=== PATIENT | male | born 1955 | race African-American/Black ===

== ENCOUNTER 2016-11-15 18:34 | Emergency (ER) | payer MEDICAID ==
[~2016-11-15] VITALS: Ht 182.9 cm; Wt 81.8 kg
[~2016-11-15 18:34] MED LIST: AMLO-511 PO; LISI10TA7 PO; METO50 PO; [UNRECOGNIZED DRUG - REMARK] PO
[2016-11-15] MEDS ORDERED: METF500T4 PO (18:55)
[2016-11-15] MEDS ORDERED: LISI1TAB9 PO (18:55)
[2016-11-15] MEDS: ACETAMINOPHEN 325 MG TABLET PO ONE (19:18)
[2016-11-15] MEDS: CloNIDine HCL 0.2 MG TABLET PO ONE (19:18)
[2016-11-15 22:16] LABS: BASOPHILS # (AUTO) 0.04 K/uL (0.00-0.20); BASOPHILS % (AUTO) 0.6 % (0.0-2.0); EOSINOPHILS # (AUTO) 0.46 K/uL (0.00-0.70); EOSINOPHILS % (AUTO) 6.96 % (1.0-6.0); HEMATOCRIT 42.2 % (41-53); HEMOGLOBIN 13.3 g/dL (13.5-17.5); LYMPHOCYTES # (AUTO) 3.1 K/uL (1.0-4.8); LYMPHOCYTES % (AUTO) 46.3 % (22.0-44.0); MEAN CORPUSCULAR HEMOGLOBIN 23.3 pg (26.0-34.0); MEAN CORPUSCULAR HGB CONC 31.6 G/dL (31.0-37.0); MEAN CORPUSCULAR VOLUME 74 fL (80-100); MONOCYTES # (AUTO) 0.3 K/uL (0.1-1.0); MONOCYTES % (AUTO) 5.2 % (2.0-9.0); NEUTROPHILS # (AUTO) 2.7 K/uL (1.8-7.7); RED BLOOD CELL COUNT(AUTO) 5.72 MIL/uL (4.50-5.90); RED CELL DISTRIBUTION WIDTH 16.2 % (11.5-14.5); WHITE BLOOD COUNT (AUTO) 6.7 K/uL (4.5-11.0)
[2016-11-15] MEDS: NITROGLYCERIN 2% (1 GM=INCH) PACKET TP ONE (22:20)
[2016-11-15 22:22] LABS: ANION GAP 8 mmol/L (8-16); CALCIUM, TOTAL 9.1 mg/dL (8.8-10.5); CARBON DIOXIDE 34 mmol/L (22-29); CHLORIDE 99 mmol/L (98-107); CREATININE 1.31 mg/dL (0.60-1.30); GLOMERULAR FILTR. RATE CALC > 60 mL/min (>60); POTASSIUM 3.5 mmol/L (3.5-5.1); SODIUM SERUM 141 mmol/L (136-145); UREA NITROGEN, BLOOD 14 mg/dL (7-18)
[2016-11-15 22:23] LABS: APPEARANCE,URINE CLEAR (CLEAR); GLUCOSE, URINE (UA) 100 mg/dL (NEGATIVE); KETONES,URINE NEGATIVE (NEGATIVE); LEUKOCYTE ESTERASE ,URINE NEGATIVE (NEGATIVE); OCCULT BLOOD,URINE NEGATIVE (NEGATIVE); PH,URINE 7.5 (5.0-8.0); PROTEIN,URINE NEGATIVE (NEGATIVE)
[2016-11-15 22:25] LABS: ADD UA MICROSCOPIC YES
[2016-11-15 22:33] LABS: RBC,URINE 0-2 /HPF (0-2); WBC,URINE 0-2 /HPF (0-5)
[2016-11-15 22:34] LABS: SQUAMOUS EPITHELIAL CELL,UR Rare /LPF (None Seen)
[2016-11-15 22:36] LABS: PLATELET COUNT (AUTO) 126 K/uL (150-450); RBC MORPHOLOGY COMMENT ABNORMAL RBC MORPH
[2016-11-15] MEDS: LABETALOL HCL 5 MG/ML 20 ML VIAL IVP ONE (23:41)
[2016-11-16 00:26] VITALS: BP 158/89
== END 2016-11-16 00:43 | disposition home or self-care (01) ==
LOC: EMS 18:37
DX: I10 Essential (primary) hypertension (principal)
CPT/HCPCS: 36415; 80048; 81001; 84484; 85025; 93005; 96374; 99285; J3490

== ENCOUNTER 2017-05-11 20:49 | Emergency (ER) | payer MEDICAID ==
[~2017-05-11] VITALS: Ht 182.9 cm; Wt 86.4 kg
[~2017-05-11 20:49] MED LIST changes: -AMLO-511 PO; -LISI10TA7 PO; +LISI1TAB9 PO; +METF500T4 PO
[2017-05-11] MEDS ORDERED: AMLO-512 PO (20:58)
[2017-05-12 01:48] VITALS: BP 156/91
== END 2017-05-12 02:14 | disposition home or self-care (01) ==
LOC: EMS 20:54
DX: R05 Cough (principal); R09.81 Nasal congestion; I10 Essential (primary) hypertension
CPT/HCPCS: 99283

== ENCOUNTER 2017-08-18 17:29 | Emergency (ER) | payer MEDICAID ==
[~2017-08-18] VITALS: Ht 182.9 cm; Wt 81.8 kg
[~2017-08-18 17:29] MED LIST changes: +AMLO-512 PO
[2017-08-18] MEDS ORDERED: AMOX1TAB16 PO (17:40)
[2017-08-18 17:48] LABS: GLUCOSE,POINT OF CARE 156 MG/DL (70-110)
[2017-08-18 20:02] LABS: BASOPHILS % (AUTO) 0.8 % (0.0-2.0); EOSINOPHILS % (AUTO) 8.1 % (1.0-6.0); HEMOGLOBIN 12.8 g/dL (13.5-17.5); LYMPHOCYTES % (AUTO) 37.6 % (22.0-44.0); MEAN CORPUSCULAR HEMOGLOBIN 22.7 pg (26.0-34.0); MEAN CORPUSCULAR VOLUME 71 fL (80-100); MONOCYTES # (AUTO) 0.4 K/uL (0.1-1.0); NEUTROPHILS # (AUTO) 2.4 K/uL (1.8-7.7); NEUTROPHILS % (AUTO) 46.5 % (40.0-70.0); PLATELET COUNT (AUTO) 107 K/uL (150-450); RED BLOOD CELL COUNT(AUTO) 5.64 MIL/uL (4.50-5.90); RED CELL DISTRIBUTION WIDTH 14.8 % (11.5-14.5)
[2017-08-18 20:09] LABS: ANION GAP 7 mmol/L (8-16); CALCIUM, TOTAL 9.4 mg/dL (8.8-10.5); CARBON DIOXIDE 33 mmol/L (22-29); CHLORIDE 105 mmol/L (98-107); GLOMERULAR FILTR. RATE CALC 58 mL/min (>60); GLUCOSE,RANDOM 103 mg/dL (70-110); POTASSIUM 3.6 mmol/L (3.5-5.1); SODIUM SERUM 145 mmol/L (136-145); UREA NITROGEN, BLOOD 17 mg/dL (7-18)
[2017-08-18 20:14] LABS: ALANINE AMINOTRANSFERASE 21 U/L (12-78); ALBUMIN 3.6 g/dL (3.4-5.0); ALKALINE PHOSPHATASE 62 U/L (46-116); ASPARTATE AMINOTRANSFERASE 27 U/L (15-37); BILIRUBIN,TOTAL 0.4 mg/dL (0.1-1.0); TOTAL PROTEIN, SERUM 8.4 g/dL (6.4-8.2)
[2017-08-18 20:16] LABS: ACETAMINOPHEN < 2 mcg/mL (10-30); AMMONIA 17 umol/L (11-32)
[2017-08-18 20:18] LABS: TROPONIN I < 0.02 ng/mL (0.00-0.05)
[2017-08-18 20:24] LABS: B-TYPE NATRIURETIC PEPTIDE 17 pg/mL (0-100)
[2017-08-18 20:30] LABS: SALICYLATE 1.5 mg/dL (2.8-20.0)
[2017-08-18 22:00] VITALS: BP 129/71
[2017-08-18 22:55] LABS: APPEARANCE,URINE CLEAR (CLEAR); BILIRUBIN,URINE NEGATIVE (NEGATIVE); GLUCOSE, URINE (UA) NEGATIVE (NEGATIVE); KETONES,URINE NEGATIVE (NEGATIVE); LEUKOCYTE ESTERASE ,URINE NEGATIVE (NEGATIVE); NITRATE,URINE NEGATIVE (NEGATIVE); OCCULT BLOOD,URINE NEGATIVE (NEGATIVE); PH,URINE 6.5 (5.0-8.0); PROTEIN,URINE POS 1+ (NEGATIVE)
[2017-08-18 22:58] LABS: AMPHET/METH SCREEN,URINE NEGATIVE (NEGATIVE); CANNABINOID SCREEN,URINE NEGATIVE (NEGATIVE); COCAINE SCREEN,URINE NEGATIVE (NEGATIVE); METHADONE SCREEN, URINE POSITIVE (NEGATIVE)
[2017-08-18 23:07] LABS: BARBITURATE SCREEN, URINE NEGATIVE (NEGATIVE); BENZODIAZEPINES SCREEN,URINE POSITIVE (NEGATIVE); OPIATE SCREEN,URINE POSITIVE (NEGATIVE); PHENCYCLIDINE SCREEN,URINE NEGATIVE (NEGATIVE)
== END 2017-08-18 22:08 | disposition home or self-care (01) ==
LOC: EMS 17:32
DX: I12.9 Hypertensive chronic kidney disease with stage 1 through stage 4 chronic kidney disease, or unspecified chronic kidney disease (principal); N18.9 Chronic kidney disease, unspecified; R26.89 Other abnormalities of gait and mobility; F11.90 Opioid use, unspecified, uncomplicated
CPT/HCPCS: 36415; 70450; 80053; 80307; 81003; 82140; 82962; 83880; 84484; 85025; 93005; 99285; G0480 ×2; G0481

== ENCOUNTER 2018-01-28 16:48 | Emergency (ER) | payer MEDICAID ==
[~2018-01-28] VITALS: Ht 182.9 cm; Wt 81.8 kg
[~2018-01-28 16:48] MED LIST changes: +AMOX1TAB16 PO; +METF-960 PO; -METF500T4 PO; -METO50 PO
[2018-01-28] MEDS ORDERED: KETOROLAC TROMETHAMINE 60 MG/2 ML VIAL IM ONE (18:00)
[2018-01-28] MEDS ORDERED: METHOCARBAMOL 500 MG TABLET PO ONE (18:00)
[2018-01-28 18:47] VITALS: BP 128/77
== END 2018-01-28 18:50 | disposition home or self-care (01) ==
LOC: EMS 16:50
DX: S16.1XXA Strain of muscle, fascia and tendon at neck level, initial encounter (principal); I10 Essential (primary) hypertension; Z79.899 Other long term (current) drug therapy; V43.52XA Car driver injured in collision with other type car in traffic accident, initial encounter; Y93.89 Activity, other specified; Y92.488 Other paved roadways as the place of occurrence of the external cause; Y99.8 Other external cause status
CPT/HCPCS: 96372; 99283; J1885

== ENCOUNTER 2018-03-02 14:45 | Emergency (ER) | payer MEDICAID ==
[~2018-03-02] VITALS: Ht 182.9 cm; Wt 81.8 kg
[2018-03-02 14:59] LABS: GLUCOSE,POINT OF CARE 114 MG/DL (70-110)
[2018-03-02] MEDS ORDERED: ACETAMINOPHEN 500 MG TABLET PO ONE (16:45)
[2018-03-02 17:19] VITALS: BP 128/79
== END 2018-03-02 17:23 | disposition home or self-care (01) ==
LOC: EMS 14:46
DX: J44.9 Chronic obstructive pulmonary disease, unspecified (principal); J40 Bronchitis, not specified as acute or chronic; M79.10 Myalgia, unspecified site; E11.9 Type 2 diabetes mellitus without complications; I10 Essential (primary) hypertension; F11.90 Opioid use, unspecified, uncomplicated; Z88.6 Allergy status to analgesic agent; Z79.84 Long term (current) use of oral hypoglycemic drugs; Z79.899 Other long term (current) drug therapy

== ENCOUNTER 2018-12-13 19:00 | Emergency (ER) | payer MEDICAID ==
[~2018-12-13] VITALS: Ht 188 cm; Wt 77.3 kg
[~2018-12-13 19:00] MED LIST changes: -AMLO-512 PO; +AMLO10TA7 PO; -AMOX1TAB16 PO
[2018-12-13] MEDS ORDERED: DEXAMETHASONE SOD PHOS 4 MG/ML VIAL IM ONE (20:45)
[2018-12-13] MEDS ORDERED: DiphenhydrAMINE HCL 25 MG CAPSULE PO ONE (20:45)
[2018-12-13] MEDS ORDERED: PRAMOXINE HCL/BENZYL ALCOHOL 1% 35 GM GEL TP ONE (20:45)
[2018-12-13 21:05] VITALS: BP 148/80
== END 2018-12-13 22:02 | disposition home or self-care (01) ==
LOC: EMS 19:02
DX: R21 Rash and other nonspecific skin eruption (principal); I10 Essential (primary) hypertension; H54.40 Blindness, one eye, unspecified eye; F11.90 Opioid use, unspecified, uncomplicated; Z79.899 Other long term (current) drug therapy
CPT/HCPCS: 96372; 99283; J1100

== ENCOUNTER 2019-06-15 19:18 | Emergency (ER) | payer MEDICAID ==
[~2019-06-15] VITALS: Ht 182.9 cm; Wt 81.8 kg
[~2019-06-15 19:18] MED LIST changes: -METF-960 PO
[2019-06-15 20:45] LABS: BASOPHILS % (AUTO) 0.5 % (0.0-2.0); EOSINOPHILS % (AUTO) 1.5 % (1.0-6.0); HEMATOCRIT 39.3 % (41-53); HEMOGLOBIN 12.6 g/dL (13.5-17.5); LYMPHOCYTES # (AUTO) 1.1 K/uL (1.0-4.8); LYMPHOCYTES % (AUTO) 13.1 % (22.0-44.0); MEAN CORPUSCULAR HGB CONC 32.1 G/dL (31.0-37.0); MEAN CORPUSCULAR VOLUME 72 fL (80-100); MONOCYTES # (AUTO) 0.6 K/uL (0.1-1.0); MONOCYTES % (AUTO) 7.3 % (2.0-9.0); NEUTROPHILS # (AUTO) 6.3 K/uL (1.8-7.7); NEUTROPHILS % (AUTO) 77.6 % (40.0-70.0); PLATELET COUNT (AUTO) 152 K/uL (150-450); RED BLOOD CELL COUNT(AUTO) 5.49 MIL/uL (4.50-5.90); RED CELL DISTRIBUTION WIDTH 16.3 % (11.5-14.5)
[2019-06-15] MEDS ORDERED: HYDR-4031 PO (20:54)
[2019-06-15] MEDS ORDERED: ABAC1TAB15 PO (20:54)
[2019-06-15] MEDS ORDERED: METO100T14 PO (20:54)
[2019-06-15] MEDS ORDERED: BUSP10TA23 PO (20:54)
[2019-06-15] MEDS ORDERED: VENL-67 PO (20:54)
[2019-06-15] MEDS ORDERED: GABA-531 PO (20:54)
[2019-06-15] MEDS ORDERED: METF-960 PO (20:54)
[2019-06-15 21:05] LABS: ALANINE AMINOTRANSFERASE 33 U/L (12-78); ALBUMIN 3.7 g/dL (3.4-5.0); ALKALINE PHOSPHATASE 81 U/L (46-116); ANION GAP 11 mmol/L (8-16); ASPARTATE AMINOTRANSFERASE 29 U/L (15-37); BILIRUBIN,TOTAL 0.3 mg/dL (0.1-1.0); CARBON DIOXIDE 28 mmol/L (22-29); CHLORIDE 103 mmol/L (98-107); CREATININE 1.25 mg/dL (0.60-1.30); GLOMERULAR FILTR. RATE CALC > 60 mL/min (>60); GLUCOSE,RANDOM 141 mg/dL (70-110); SODIUM SERUM 142 mmol/L (136-145); TOTAL PROTEIN, SERUM 8.1 g/dL (6.4-8.2); UREA NITROGEN, BLOOD 12 mg/dL (7-18)
[2019-06-15 21:06] LABS: ACETAMINOPHEN < 2 mcg/mL (10-30); POTASSIUM 2.6 mmol/L (3.5-5.1)
[2019-06-15 21:07] LABS: PLATELET MORPHOLOGY COMMENT LARGE PLTS PRESENT
[2019-06-15 21:29] LABS: SALICYLATE 1.6 mg/dL (2.8-20.0)
[2019-06-15] MEDS ORDERED: POTASSIUM CHLORIDE 20 MEQ ER TABLET PO ONE (21:30)
[2019-06-15] MEDS: POTASSIUM CHL 10 MEQ/WATER 50 ML IV SCH ×2 (22:06→23:25)
[2019-06-15 23:25] VITALS: BP 164/98
== END 2019-06-16 00:50 | disposition home or self-care (01) ==
LOC: EMS 19:21
DX: T40.3X1A Poisoning by methadone, accidental (unintentional), initial encounter (principal); T39.1X1A Poisoning by 4-Aminophenol derivatives, accidental (unintentional), initial encounter; E87.6 Hypokalemia; I10 Essential (primary) hypertension; Z79.899 Other long term (current) drug therapy; Z79.84 Long term (current) use of oral hypoglycemic drugs; Z98.890 Other specified postprocedural states; Y92.89 Other specified places as the place of occurrence of the external cause
CPT/HCPCS: 36415; 80053; 85025; 93005; 96365; 96366; 99284; G0480; J3480; G0481

== ENCOUNTER 2019-06-27 12:39 | Emergency (ER) | payer MEDICAID ==
[~2019-06-27] VITALS: Ht 188 cm; Wt 81.0 kg
[~2019-06-27 12:39] MED LIST changes: +ABAC1TAB15 PO; +BUSP10TA23 PO; +GABA-531 PO; +HYDR-4031 PO; +METF-960 PO; +METO100T14 PO; +VENL-67 PO; -[UNRECOGNIZED DRUG - REMARK] PO
[2019-06-27 13:14] LABS: GLUCOSE,POINT OF CARE 134 MG/DL (70-110)
[2019-06-27] MEDS ORDERED: IBUPROFEN 600 MG TABLET PO ONE (14:30)
[2019-06-27] MEDS ORDERED: LIDOCAINE 5% TRANSDERMAL PATCH TD ONE (14:30)
[2019-06-27 16:25] VITALS: BP 147/77
== END 2019-06-27 16:26 | disposition home or self-care (01) ==
LOC: EMS 12:40
DX: M94.0 Chondrocostal junction syndrome [Tietze] (principal); I10 Essential (primary) hypertension; F11.90 Opioid use, unspecified, uncomplicated; Z79.84 Long term (current) use of oral hypoglycemic drugs; Z79.899 Other long term (current) drug therapy
CPT/HCPCS: 93005

== ENCOUNTER 2019-12-14 19:59 | Emergency (ER) | payer MEDICAID ==
[~2019-12-14] VITALS: Ht 185.4 cm; Wt 79.5 kg
[~2019-12-14 19:59] MED LIST changes: +AMLO-258 PO; -AMLO10TA7 PO
[2019-12-14] MEDS ORDERED: HYDR-4455 PO (20:10)
[2019-12-14] MEDS ORDERED: METF-960 PO (20:10)
[2019-12-14 21:30] LABS: BASOPHILS % (AUTO) 0.5 % (0.0-2.0); EOSINOPHILS % (AUTO) 2.3 % (1.0-6.0); HEMATOCRIT 27.4 % (41-53); HEMOGLOBIN 8.8 g/dL (13.5-17.5); LYMPHOCYTES # (AUTO) 1.9 K/uL (1.0-4.8); LYMPHOCYTES % (AUTO) 30.7 % (22.0-44.0); MEAN CORPUSCULAR HEMOGLOBIN 23.1 pg (26.0-34.0); MEAN CORPUSCULAR HGB CONC 32.3 G/dL (31.0-37.0); MEAN CORPUSCULAR VOLUME 72 fL (80-100); MONOCYTES # (AUTO) 0.4 K/uL (0.1-1.0); NEUTROPHILS # (AUTO) 3.7 K/uL (1.8-7.7); NEUTROPHILS % (AUTO) 60.5 % (40.0-70.0); PLATELET COUNT (AUTO) 140 K/uL (150-450); RED BLOOD CELL COUNT(AUTO) 3.82 MIL/uL (4.50-5.90); RED CELL DISTRIBUTION WIDTH 16.2 % (11.5-14.5)
[2019-12-14 21:38] LABS: ANION GAP 5 mmol/L (8-16); CALCIUM, TOTAL 8.5 mg/dL (8.8-10.5); CARBON DIOXIDE 34 mmol/L (22-29); CHLORIDE 103 mmol/L (98-107); CREATININE 1.48 mg/dL (0.60-1.30); GLOMERULAR FILTR. RATE CALC 58 mL/min (>60); GLUCOSE,RANDOM 133 mg/dL (70-110); POTASSIUM 3.5 mmol/L (3.5-5.1); SODIUM SERUM 142 mmol/L (136-145); UREA NITROGEN, BLOOD 13 mg/dL (7-18)
[2019-12-14 21:44] LABS: ALANINE AMINOTRANSFERASE 28 U/L (12-78); ALBUMIN 3.3 g/dL (3.4-5.0); ALKALINE PHOSPHATASE 46 U/L (46-116); ASPARTATE AMINOTRANSFERASE 27 U/L (15-37); BILIRUBIN,TOTAL 0.2 mg/dL (0.1-1.0); LIPASE 48 U/L (73-393); TOTAL PROTEIN, SERUM 7.2 g/dL (6.4-8.2)
[2019-12-14 21:49] LABS: LACTIC ACID 2.8 mmol/L (0.4-2.0)
[2019-12-14 22:15] LABS: PLATELET MORPHOLOGY COMMENT LARGE PLTS PRESENT
[2019-12-14] MEDS ORDERED: SODIUM CHLORIDE 0.9% 1,000 ML IV ONE (22:15)
[2019-12-15 00:03] LABS: GLUCOSE,POINT OF CARE 125 MG/DL (70-110)
[2019-12-15 02:20] VITALS: BP 124/75
[2019-12-15] MEDS ORDERED: ASPI-1198 PO (13:59)
[2019-12-15] MEDS ORDERED: ATOR10TA69 PO (13:59)
[2019-12-15] MEDS ORDERED: GABA-1181 PO (13:59)
[2019-12-15] MEDS ORDERED: LISI-658 PO (13:59)
== END 2019-12-15 02:43 | disposition home or self-care (01) ==
LOC: EMS 19:59
DX: K62.5 Hemorrhage of anus and rectum (principal); K59.00 Constipation, unspecified; E11.9 Type 2 diabetes mellitus without complications; I10 Essential (primary) hypertension; F11.90 Opioid use, unspecified, uncomplicated; Z79.84 Long term (current) use of oral hypoglycemic drugs; Z79.899 Other long term (current) drug therapy
CPT/HCPCS: 83605

== ENCOUNTER 2022-03-06 19:21 | Emergency (ER) | payer MEDICARE, MEDICAID ==
[~2022-03-06] VITALS: Ht 185.4 cm; Wt 79.5 kg
[~2022-03-06 19:21] MED LIST changes: +ASPI-1198 PO; +ATOR10TA69 PO; +GABA-1181 PO; -GABA-531 PO; -HYDR-4031 PO; -LISI1TAB9 PO; +METF-1211 PO; -METF-960 PO; -METO100T14 PO
[2022-03-06] MEDS ORDERED: METO100T14 PO (19:42)
[2022-03-06] MEDS ORDERED: LISI-658 PO (19:42)
[2022-03-06] MEDS ORDERED: HYDR-4069 PO (19:42)
[2022-03-06] MEDS ORDERED: HYDR-4808 PO (19:42)
[2022-03-06 20:25] LABS: BASOPHILS % (AUTO) 0.4 % (0.0-2.0); EOSINOPHILS % (AUTO) 6.1 % (1.0-6.0); HEMATOCRIT 35.3 % (41-53); HEMOGLOBIN 10.8 g/dL (13.5-17.5); LYMPHOCYTES % (AUTO) 29.1 % (22.0-44.0); MEAN CORPUSCULAR HEMOGLOBIN 20.1 pg (26.0-34.0); MEAN CORPUSCULAR HGB CONC 30.4 G/dL (31.0-37.0); MEAN CORPUSCULAR VOLUME 66 fL (80-100); MONOCYTES # (AUTO) 0.9 K/uL (0.1-1.0); MONOCYTES % (AUTO) 12.9 % (2.0-9.0); NEUTROPHILS # (AUTO) 3.5 K/uL (1.8-7.7); NEUTROPHILS % (AUTO) 51.5 % (40.0-70.0); PLATELET COUNT (AUTO) 189 K/uL (150-450); RED BLOOD CELL COUNT(AUTO) 5.35 MIL/uL (4.50-5.90)
[2022-03-06 20:37] LABS: CALCIUM, TOTAL 9.4 mg/dL (8.8-10.5); CREATININE 2.13 mg/dL (0.60-1.30); POTASSIUM 4.1 mmol/L (3.5-5.1)
[2022-03-06 20:42] LABS: ALBUMIN 3.6 g/dL (3.4-5.0); BILIRUBIN,TOTAL 0.5 mg/dL (0.1-1.0); PLATELET MORPHOLOGY COMMENT LARGE PLTS PRESENT; TOTAL PROTEIN, SERUM 7.9 g/dL (6.4-8.2)
[2022-03-06] MEDS ORDERED: ACETAMINOPHEN 500 MG TABLET PO ONE (20:45)
[2022-03-06] MEDS ORDERED: MAG HYDROX/AL HYDROX/SIMETH ES 30 ML SUSPENSION UDCUP PO ONE (20:45)
[2022-03-06] MEDS ORDERED: ONDANSETRON HCL 4 MG TABLET PO ONE (20:45)
[2022-03-06] MEDS ORDERED: ONDA-104 PO (22:11)
[2022-03-06] MEDS ORDERED: MAG30ORA11 PO (22:11)
[2022-03-06] MEDS ORDERED: ACET-66 PO (22:11)
[2022-03-06 22:19] VITALS: BP 132/70
== END 2022-03-06 22:22 | disposition home or self-care (01) ==
LOC: EMS 19:22
DX: R10.10 Upper abdominal pain, unspecified (principal); F11.10 Opioid abuse, uncomplicated; I12.9 Hypertensive chronic kidney disease with stage 1 through stage 4 chronic kidney disease, or unspecified chronic kidney disease; E11.22 Type 2 diabetes mellitus with diabetic chronic kidney disease; N18.9 Chronic kidney disease, unspecified; R91.8 Other nonspecific abnormal finding of lung field; Z98.890 Other specified postprocedural states; Z93.3 Colostomy status
CPT/HCPCS: 99285; 74176; 80053; 83605; 83690; 84484; 85025; 36415; 93005; Q0162

== ENCOUNTER 2022-12-26 18:32 | Emergency (ER) | payer MEDICARE, MEDICAID ==
[~2022-12-26] VITALS: Ht 185.4 cm; Wt 72.7 kg
[~2022-12-26 18:32] MED LIST changes: +ABAC300T2 PO; +ACET-784 PO; -ASPI-1198 PO; +DOCU-119 PO; +DOLU50TA PO; +HYDR-4069 PO; +HYDR-4808 PO; +LAMI300T PO; +LISI-661 PO; +METH10 PO
[2022-12-26 21:06] VITALS: TEMP 98.8
[2022-12-26 23:10] VITALS: BP 156/82; PULSE 82; RESP 16
== END 2022-12-26 23:10 | disposition home or self-care (01) ==
LOC: EMS 18:33
DX: F41.0 Panic disorder [episodic paroxysmal anxiety] (principal); I10 Essential (primary) hypertension; E78.00 Pure hypercholesterolemia, unspecified; E11.9 Type 2 diabetes mellitus without complications; Z79.84 Long term (current) use of oral hypoglycemic drugs; Z79.899 Other long term (current) drug therapy; F11.90 Opioid use, unspecified, uncomplicated
CPT/HCPCS: 82962; 99283

== ENCOUNTER 2024-11-01 22:26 | Inpatient (IN) | payer MEDICARE, MEDICAID ==
[~2024-11-01] VITALS: Ht 177.8 cm; Wt 79.9 kg
[2024-11-01] MEDS: haloperidoL LACTATE 5 MG/ML VIAL IM ONE (22:56)
[2024-11-01] MEDS: LORazepam 2 MG/ML VIAL IM ONE (22:56)
[2024-11-01] MEDS: SODIUM CHLORIDE 0.9% 1,000 ML IV ONE (22:56)
[2024-11-01] MEDS: DiphenhydrAMINE HCL 50 MG/ML VIAL IM ONE (22:56)
[2024-11-01 22:57] LABS: EOSINOPHILS % (AUTO) 4.5 % (1.0-6.0); HEMATOCRIT 44.1 % (41-53); HEMOGLOBIN 14.1 g/dL (13.5-17.5); LYMPHOCYTES # (AUTO) 4.9 K/uL (1.0-4.8); LYMPHOCYTES % (AUTO) 52.9 % (22.0-44.0); MEAN CORPUSCULAR HEMOGLOBIN 25.7 pg (26.0-34.0); MEAN CORPUSCULAR HGB CONC 31.9 G/dL (31.0-37.0); MEAN CORPUSCULAR VOLUME 80 fL (80-100); MONOCYTES # (AUTO) 0.7 K/uL (0.1-1.0); MONOCYTES % (AUTO) 8.1 % (2.0-9.0); NEUTROPHILS # (AUTO) 3.1 K/uL (1.8-7.7); NEUTROPHILS % (AUTO) 33.5 % (40.0-70.0); PLATELET COUNT (AUTO) 219 K/uL (150-450); RED BLOOD CELL COUNT(AUTO) 5.48 MIL/uL (4.50-5.90); RED CELL DISTRIBUTION WIDTH 17.3 % (11.5-14.5); WHITE BLOOD COUNT (AUTO) 9.2 K/uL (4.5-11.0)
[2024-11-01 23:17] LABS: ANION GAP 18 mmol/L (8-16); CALCIUM, TOTAL 9.5 mg/dL (8.8-10.5); CARBON DIOXIDE 21 mmol/L (22-29); CHLORIDE 101 mmol/L (98-107); CREATININE 1.88 mg/dL (0.60-1.30); GLOMERULAR FILTR. RATE CALC 43 mL/min (>60); GLUCOSE,RANDOM 163 mg/dL (70-110); POTASSIUM 3.5 mmol/L (3.5-5.1); SODIUM SERUM 140 mmol/L (136-145); UREA NITROGEN, BLOOD 16 mg/dL (7-18)
[2024-11-01 23:25] LABS: BILIRUBIN,DIRECT 0.2 mg/dL (0.00-0.20); BILIRUBIN,TOTAL 0.8 mg/dL (0.1-1.0)
[2024-11-01 23:26] LABS: ALBUMIN 3.5 g/dL (3.4-5.0); TOTAL PROTEIN, SERUM 7.7 g/dL (6.4-8.2)
[2024-11-01 23:40] LABS: TROPONIN I-HIGH SENSITIVITY 13 ng/L (<76)
[2024-11-01] MEDS: MIDAZOLAM HCL 5 MG/ML VIAL IVP ONE (23:46)
[2024-11-02 00:01] LABS: LACTIC ACID 10.8 mmol/L (0.4-2.0)
[2024-11-02 00:03] LABS: APPEARANCE,URINE CLEAR (CLEAR); BILIRUBIN,URINE NEGATIVE (NEGATIVE); COLOR,URINE YELLOW (YELLOW); GLUCOSE, URINE (UA) TRACE mg/dL (NEGATIVE); KETONES,URINE TRACE mg/dL (NEGATIVE); LEUKOCYTE ESTERASE ,URINE NEGATIVE (NEGATIVE); NITRATE,URINE NEGATIVE (NEGATIVE); OCCULT BLOOD,URINE MODERATE (NEGATIVE); PROTEIN,URINE 300-600,SEE CONFIRM mg/dL (NEGATIVE); SPECIFIC GRAVITIY, URINE 1.021 (1.003-1.030); UROBILINOGEN,URINE <=1.0 mg/dL (<=1.0)
[2024-11-02 00:08] LABS: PROTHROMBIN TIME 11.5 SEC (9.4-11.6)
[2024-11-02 00:09] LABS: ALCOHOL, URINE DRUG SCREEN NEGATIVE (NEGATIVE); AMPHET/METH SCREEN,URINE NEGATIVE (NEGATIVE); BARBITURATE SCREEN, URINE NEGATIVE (NEGATIVE); BENZODIAZEPINES SCREEN,URINE NEGATIVE (NEGATIVE); CANNABINOID SCREEN,URINE POSITIVE (NEGATIVE); COCAINE SCREEN,URINE NEGATIVE (NEGATIVE); METHADONE SCREEN, URINE POSITIVE (NEGATIVE); OPIATE SCREEN,URINE POSITIVE (NEGATIVE); PHENCYCLIDINE SCREEN,URINE NEGATIVE (NEGATIVE)
[2024-11-02 00:29] LABS: SULFOSALICYLIC ACID,URINE 2+ (Negative)
[2024-11-02 00:30] LABS: BACTERIA,URINE None Seen /HPF (None Seen); SQUAMOUS EPITHELIAL CELL,UR Rare /LPF (None Seen); WBC,URINE 0-2 /HPF (0-5)
[2024-11-02] MEDS: SODIUM CHLORIDE 0.9% 1,400 ML IV ONE (00:36)
[2024-11-02] MEDS: MIDAZOLAM HCL 2 MG/2 ML VIAL IM ONE (00:36)
[2024-11-02] MEDS: NiCARDipine HCL 25 MG in SODIUM CHLORIDE 0.9% 240 ML IV PRN ×2 (00:36→20:08)
[2024-11-02] MEDS: LevETIRAcetam 1,000 MG in DEXTROSE 5%-WATER 100 ML IV ONE (00:45)
[2024-11-02] MEDS: PIPERACILLIN/TAZO 3.375 GM/D5W 50 ML IV ONE (00:45)
[2024-11-02] MEDS: LevETIRAcetam 500 MG in DEXTROSE 5%-WATER 100 ML IV SCH (06:56)
[2024-11-02] MEDS: AmLODIPine BESYLATE 10 MG TABLET PO SCH (08:26)
[2024-11-02] MEDS: GABAPENTIN 300 MG CAPSULE PO SCH (08:26)
[2024-11-02] MEDS: ABACAVIR SULFATE 300 MG TABLET PO SCH (09:00)
[2024-11-02] MEDS: BusPIRone HCL 10 MG TABLET PO SCH (09:00)
[2024-11-02] MEDS: ATORVASTATIN CALCIUM 10 MG TABLET PO SCH (09:00)
[2024-11-02] MEDS: DOLUTEGRAVIR SODIUM 50 MG TABLET PO SCH (09:00)
[2024-11-02] MEDS ORDERED: SODIUM CHLORIDE 0.9% 100 ML ONE (19:22)
[2024-11-02] MEDS ORDERED: IOHEXOL 350 MG/ML 100 ML VIAL ONE (19:22)
[2024-11-03] MEDS: ACETAMINOPHEN 500 MG TABLET PO ONE (02:15)
[2024-11-03 03:44] LABS: BASOPHILS % (AUTO) 1.1 % (0.0-2.0); EOSINOPHILS % (AUTO) 4.4 % (1.0-6.0); HEMOGLOBIN 11.7 g/dL (13.5-17.5); LYMPHOCYTES # (AUTO) 1.4 K/uL (1.0-4.8); LYMPHOCYTES % (AUTO) 23.7 % (22.0-44.0); MEAN CORPUSCULAR HEMOGLOBIN 25.7 pg (26.0-34.0); MEAN CORPUSCULAR HGB CONC 32.4 G/dL (31.0-37.0); MEAN CORPUSCULAR VOLUME 79 fL (80-100); MONOCYTES # (AUTO) 0.6 K/uL (0.1-1.0); MONOCYTES % (AUTO) 9.4 % (2.0-9.0); NEUTROPHILS # (AUTO) 3.7 K/uL (1.8-7.7); NEUTROPHILS % (AUTO) 61.4 % (40.0-70.0); PLATELET COUNT (AUTO) 159 K/uL (150-450); RED BLOOD CELL COUNT(AUTO) 4.54 MIL/uL (4.50-5.90); RED CELL DISTRIBUTION WIDTH 16.9 % (11.5-14.5)
[2024-11-03 03:52] LABS: ANION GAP 2 mmol/L (8-16); CALCIUM, TOTAL 7.9 mg/dL (8.8-10.5); CARBON DIOXIDE 30 mmol/L (22-29); CHLORIDE 110 mmol/L (98-107); CREATININE 1.65 mg/dL (0.60-1.30); GLOMERULAR FILTR. RATE CALC 50 mL/min (>60); GLUCOSE,RANDOM 104 mg/dL (70-110); SODIUM SERUM 142 mmol/L (136-145); UREA NITROGEN, BLOOD 13 mg/dL (7-18)
[2024-11-03 03:57] LABS: ALANINE AMINOTRANSFERASE 13 U/L (12-78); ALBUMIN 2.5 g/dL (3.4-5.0); ALKALINE PHOSPHATASE 44 U/L (46-116); ASPARTATE AMINOTRANSFERASE 40 U/L (15-37); TOTAL PROTEIN, SERUM 5.8 g/dL (6.4-8.2)
[2024-11-03 04:02] LABS: LACTIC ACID 1.3 mmol/L (0.4-2.0)
[2024-11-03 04:03] LABS: POTASSIUM 2.7 mmol/L (3.5-5.1)
[2024-11-03] MEDS: POTASSIUM CHL 10 MEQ/WATER 50 ML IV PRN (04:34)
[2024-11-03] MEDS: AmLODIPine BESYLATE 10 MG TABLET PO SCH (08:01)
[2024-11-03] MEDS: ACETAMINOPHEN 325 MG TABLET PO PRN (16:32)
[2024-11-03] MEDS: POTASSIUM CHLORIDE 20 MEQ ER TABLET PO PRN (18:01)
[2024-11-03 18:32] VITALS: BP 133/80; PULSE 65; RESP 18; TEMP 97.3; O2SAT 100
[2024-11-03 19:18] VITALS: BP 137/75; PULSE 67; RESP 18; TEMP 98.4; O2SAT 99
[2024-11-03] MEDS: LevETIRAcetam 500 MG TABLET PO SCH (22:01)
[2024-11-04] VITALS (7 sets, daily range): BP systolic 139–155; BP diastolic 74–85; PULSE 64–72; RESP 18–19; TEMP 97.3–98.2; O2SAT 98–100
[2024-11-04] MEDS: HydrALAZINE HCL 20 MG/ML VIAL IVP PRN (01:23)
[2024-11-04 07:18] LABS: BASOPHILS % (AUTO) 0.6 % (0.0-2.0); HEMATOCRIT 36.9 % (41-53); HEMOGLOBIN 11.9 g/dL (13.5-17.5); LYMPHOCYTES # (AUTO) 1.8 K/uL (1.0-4.8); LYMPHOCYTES % (AUTO) 32.4 % (22.0-44.0); MEAN CORPUSCULAR HEMOGLOBIN 25.8 pg (26.0-34.0); MEAN CORPUSCULAR HGB CONC 32.3 G/dL (31.0-37.0); MEAN CORPUSCULAR VOLUME 80 fL (80-100); MONOCYTES # (AUTO) 0.5 K/uL (0.1-1.0); MONOCYTES % (AUTO) 9.6 % (2.0-9.0); NEUTROPHILS # (AUTO) 2.8 K/uL (1.8-7.7); NEUTROPHILS % (AUTO) 51.4 % (40.0-70.0); PLATELET COUNT (AUTO) 140 K/uL (150-450); RED BLOOD CELL COUNT(AUTO) 4.63 MIL/uL (4.50-5.90); RED CELL DISTRIBUTION WIDTH 16.8 % (11.5-14.5); WHITE BLOOD COUNT (AUTO) 5.5 K/uL (4.5-11.0)
[2024-11-04 07:24] LABS: ANION GAP 6 mmol/L (8-16); CALCIUM, TOTAL 8.3 mg/dL (8.8-10.5); CARBON DIOXIDE 29 mmol/L (22-29); CHLORIDE 112 mmol/L (98-107); CREATININE 1.28 mg/dL (0.60-1.30); GLOMERULAR FILTR. RATE CALC > 60 mL/min (>60); GLUCOSE,RANDOM 109 mg/dL (70-110); POTASSIUM 3.7 mmol/L (3.5-5.1); SODIUM SERUM 147 mmol/L (136-145); UREA NITROGEN, BLOOD 8 mg/dL (7-18)
[2024-11-04] MEDS: atenoloL 25 MG TABLET PO SCH (08:43)
[2024-11-04] MEDS ORDERED: GADOTERATE MEGLUMINE 10 MMOL/20 ML VIAL IVP ONE (10:10)
[2024-11-04 10:11] LABS: GLUCOMETER DEV NAME(LOC) 5S.2D; GLUCOSE,POINT OF CARE 106 MG/DL (70-110)
[2024-11-04 19:05] LABS: GLUCOMETER DEV NAME(LOC) 5S.2D; GLUCOSE,POINT OF CARE 121 MG/DL (70-110)
[2024-11-04 19:05] LABS: GLUCOMETER DEV NAME(LOC) 5S.1D; GLUCOSE,POINT OF CARE 173 MG/DL (70-110)
[2024-11-04] MEDS: dexAMETHasone 4 MG TABLET PO SCH (20:44)
[2024-11-04] MEDS ORDERED: INSULIN LISPRO 100 UNITS/ML SQ PRN (21:30)
[2024-11-04] MEDS ORDERED: HYDROCODONE/ACETAMINOPHEN 5-325 MG TABLET PO PRN (21:30)
[2024-11-04] MEDS ORDERED: GLUCAGON,HUMAN RECOMBINANT 1 MG VIAL IM PRN (21:30)
[2024-11-04] MEDS: INSULIN LISPRO 100 UNITS/ML SQ PRN (21:37)
[2024-11-04] MEDS ORDERED: DEXTROSE 50%-WATER 25 GM/50 ML SYRINGE IVP PRN (21:45)
[2024-11-04 22:00] LABS: GLUCOMETER DEV NAME(LOC) 5S.1D; GLUCOSE,POINT OF CARE 173 MG/DL (70-110)
[2024-11-04] MEDS: OxyCODONE HCL/ACETAMINOPHEN 10-325 MG TABLET PO PRN (23:32)
[2024-11-05 05:07] VITALS: BP 158/86; PULSE 78; RESP 18; TEMP 97.9; O2SAT 100
[2024-11-05 06:11] LABS: GLUCOMETER DEV NAME(LOC) 5S.1D; GLUCOSE,POINT OF CARE 209 MG/DL (70-110)
[2024-11-05 06:46] LABS: BASOPHILS % (AUTO) 0.4 % (0.0-2.0); EOSINOPHILS % (AUTO) 0.4 % (1.0-6.0); HEMATOCRIT 37.2 % (41-53); HEMOGLOBIN 11.9 g/dL (13.5-17.5); LYMPHOCYTES # (AUTO) 0.4 K/uL (1.0-4.8); LYMPHOCYTES % (AUTO) 7.8 % (22.0-44.0); MEAN CORPUSCULAR HEMOGLOBIN 25.7 pg (26.0-34.0); MEAN CORPUSCULAR VOLUME 80 fL (80-100); MONOCYTES # (AUTO) 0.1 K/uL (0.1-1.0); MONOCYTES % (AUTO) 1.4 % (2.0-9.0); NEUTROPHILS # (AUTO) 4.2 K/uL (1.8-7.7); PLATELET COUNT (AUTO) 133 K/uL (150-450); RED BLOOD CELL COUNT(AUTO) 4.63 MIL/uL (4.50-5.90); RED CELL DISTRIBUTION WIDTH 17.3 % (11.5-14.5); WHITE BLOOD COUNT (AUTO) 4.7 K/uL (4.5-11.0)
[2024-11-05 06:51] LABS: ANION GAP 6 mmol/L (8-16); CALCIUM, TOTAL 8.5 mg/dL (8.8-10.5); CARBON DIOXIDE 25 mmol/L (22-29); CHLORIDE 107 mmol/L (98-107); CREATININE 1.32 mg/dL (0.60-1.30); GLOMERULAR FILTR. RATE CALC > 60 mL/min (>60); GLUCOSE,RANDOM 206 mg/dL (70-110); POTASSIUM 4.3 mmol/L (3.5-5.1); SODIUM SERUM 138 mmol/L (136-145); UREA NITROGEN, BLOOD 12 mg/dL (7-18)
[2024-11-05 06:52] LABS: PLATELET MORPHOLOGY COMMENT LARGE PLTS PRESENT; RBC MORPHOLOGY COMMENT ABNORMAL RBC MORPH
[2024-11-05 08:03] VITALS: BP 152/90; PULSE 75; RESP 19; TEMP 98.1; O2SAT 100
[2024-11-05 09:43] VITALS: BP 140/81; PULSE 79; RESP 19; TEMP 98.1; O2SAT 98
[2024-11-05 12:17] VITALS: BP 143/82; PULSE 78; RESP 18; TEMP 98.2; O2SAT 99
[2024-11-05] MEDS ORDERED: MAGNESIUM HYDROXIDE SUSPENSION 30 ML UDCUP PO PRN (13:15)
[2024-11-05 18:37] VITALS: BP 136/83; PULSE 79; RESP 19; TEMP 97.9; O2SAT 100
[2024-11-05 19:32] VITALS: BP 167/78; PULSE 82; RESP 18; TEMP 97.7; O2SAT 99
[2024-11-06] VITALS (7 sets, daily range): BP systolic 152–174; BP diastolic 73–87; PULSE 72–85; RESP 16–19; TEMP 97.7–98.1; O2SAT 97–99
[2024-11-06 06:33] LABS: EOSINOPHILS % (AUTO) 0 % (1.0-6.0); HEMATOCRIT 36.7 % (41-53); HEMOGLOBIN 11.7 g/dL (13.5-17.5); LYMPHOCYTES # (AUTO) 0.5 K/uL (1.0-4.8); LYMPHOCYTES % (AUTO) 5.3 % (22.0-44.0); MEAN CORPUSCULAR HEMOGLOBIN 25.6 pg (26.0-34.0); MEAN CORPUSCULAR HGB CONC 31.9 G/dL (31.0-37.0); MEAN CORPUSCULAR VOLUME 80 fL (80-100); MONOCYTES # (AUTO) 0.2 K/uL (0.1-1.0); NEUTROPHILS # (AUTO) 8.3 K/uL (1.8-7.7); PLATELET COUNT (AUTO) 148 K/uL (150-450); RED BLOOD CELL COUNT(AUTO) 4.58 MIL/uL (4.50-5.90); RED CELL DISTRIBUTION WIDTH 17.3 % (11.5-14.5); WHITE BLOOD COUNT (AUTO) 8.9 K/uL (4.5-11.0)
[2024-11-06 06:58] LABS: ANION GAP 6 mmol/L (8-16); CALCIUM, TOTAL 8.7 mg/dL (8.8-10.5); CARBON DIOXIDE 27 mmol/L (22-29); CHLORIDE 106 mmol/L (98-107); CREATININE 1.28 mg/dL (0.60-1.30); GLOMERULAR FILTR. RATE CALC > 60 mL/min (>60); GLUCOSE,RANDOM 298 mg/dL (70-110); POTASSIUM 4.7 mmol/L (3.5-5.1); SODIUM SERUM 139 mmol/L (136-145); UREA NITROGEN, BLOOD 16 mg/dL (7-18)
[2024-11-06 07:01] LABS: NEUTROPHILS % (AUTO) 92.7 % (40.0-70.0)
[2024-11-06 08:11] LABS: PLATELET MORPHOLOGY COMMENT GIANT PLTS PRESENT
[2024-11-06] MEDS ORDERED: ATEN-73 PO (12:58)
[2024-11-06] MEDS ORDERED: LEVE-71 PO (12:58)
[2024-11-06] MEDS ORDERED: DEXA4 PO (12:58)
[2024-11-07 11:11] LABS: GLUCOMETER DEV NAME(LOC) 5S.1D; GLUCOSE,POINT OF CARE 251 MG/DL (70-110)
[2024-11-07 11:11] LABS: GLUCOMETER DEV NAME(LOC) 5S.1D; GLUCOSE,POINT OF CARE 234 MG/DL (70-110)
[2024-11-07 11:11] LABS: GLUCOMETER DEV NAME(LOC) 5S.2D; GLUCOSE,POINT OF CARE 288 MG/DL (70-110)
[2024-11-07 11:11] LABS: GLUCOMETER DEV NAME(LOC) 5S.1D; GLUCOSE,POINT OF CARE 186 MG/DL (70-110)
[2024-11-07 11:11] LABS: GLUCOMETER DEV NAME(LOC) 5S.1D; GLUCOSE,POINT OF CARE 258 MG/DL (70-110)
[2024-11-07 11:11] LABS: GLUCOMETER DEV NAME(LOC) 5S.1D; GLUCOSE,POINT OF CARE 303 MG/DL (70-110)
== END 2024-11-06 20:00 | disposition home or self-care (01) | DRG 54 ==
LOC: EMS 22:27 → EDH 11-02 00:17 → 5S 11-03 18:18
PROVIDERS: ADMIT Internal Medicine; ATTEND Internal Medicine
DX: C79.31 Secondary malignant neoplasm of brain (principal); G92.8 Other toxic encephalopathy; I61.9 Nontraumatic intracerebral hemorrhage, unspecified; D84.9 Immunodeficiency, unspecified; I16.0 Hypertensive urgency; E11.9 Type 2 diabetes mellitus without complications; E78.5 Hyperlipidemia, unspecified; I10 Essential (primary) hypertension; R56.9 Unspecified convulsions; F11.10 Opioid abuse, uncomplicated; F41.9 Anxiety disorder, unspecified; G43.909 Migraine, unspecified, not intractable, without status migrainosus; E78.00 Pure hypercholesterolemia, unspecified; Z85.038 Personal history of other malignant neoplasm of large intestine; Z79.899 Other long term (current) drug therapy; Z85.118 Personal history of other malignant neoplasm of bronchus and lung; Z87.891 Personal history of nicotine dependence; Z90.49 Acquired absence of other specified parts of digestive tract
CPT/HCPCS: 51702; 70450; 70496; 70498; 71045; 71250; 72192; 73521; 74150; 80048; 80053; 80076; 80307; 81001; 81002; 82140; 82550; 82962; 83605; 83880; 84132; 84484; 85025; 85610; 85730; 87040; 93005; 96361; 96372; 96374; 97116; 97163; 97530; 99291; G0378; J0360; J0712; J1200; J1630; J2060; J2250; J2543; J3480; J3490; J7050; J7060; J8540; 36415-L1; 36415-TC

== ENCOUNTER 2024-12-07 21:03 | Emergency (ER) | payer MEDICARE, MEDICAID ==
[~2024-12-07 21:03] MED LIST changes: -ABAC300T2 PO; +ATEN-73 PO; +DEXA4 PO; -DOCU-119 PO; -DOLU50TA PO; -HYDR-4069 PO; -HYDR-4808 PO; +LEVE-71 PO; -LISI-661 PO
[2024-12-07] MEDS: IBUPROFEN 600 MG TABLET PO ONE (22:33)
[2024-12-07] MEDS ORDERED: IBUP-1492 PO (23:17)
== END 2024-12-07 23:41 | disposition still patient (30) ==
LOC: EMS 21:03
DX: S93.401A Sprain of unspecified ligament of right ankle, initial encounter (principal); I10 Essential (primary) hypertension; F41.9 Anxiety disorder, unspecified; E11.9 Type 2 diabetes mellitus without complications; E78.00 Pure hypercholesterolemia, unspecified; G43.909 Migraine, unspecified, not intractable, without status migrainosus; F11.90 Opioid use, unspecified, uncomplicated; Z90.49 Acquired absence of other specified parts of digestive tract; Z88.5 Allergy status to narcotic agent; Z79.624 Long term (current) use of inhibitors of nucleotide synthesis; Z79.52 Long term (current) use of systemic steroids; Z79.899 Other long term (current) drug therapy; X50.1XXA Overexertion from prolonged static or awkward postures, initial encounter; Y93.89 Activity, other specified; Y92.89 Other specified places as the place of occurrence of the external cause; Y99.8 Other external cause status
CPT/HCPCS: 82962; 99283

== ENCOUNTER 2024-12-14 01:01 | Inpatient (IN) | payer MEDICARE, MEDICAID ==
[~2024-12-14] VITALS: Ht 182.9 cm; Wt 70.0 kg
[~2024-12-14 01:01] MED LIST changes: +IBUP-1492 PO
[2024-12-14 03:13] LABS: PLATELET COUNT (AUTO) 174 K/uL (150-450); RED BLOOD CELL COUNT(AUTO) 5.50 MIL/uL (4.50-5.90); RED CELL DISTRIBUTION WIDTH 15.6 % (11.5-14.5); WHITE BLOOD COUNT (AUTO) 6.3 K/uL (4.5-11.0)
[2024-12-14 03:18] LABS: RBC MORPHOLOGY COMMENT ABNORMAL RBC MORPH
[2024-12-14 03:28] LABS: ALCOHOL, BLOOD (SERUM) < 3 mg/dL (0-10); ASPARTATE AMINOTRANSFERASE 40 U/L (15-37); CREATINE KINASE, TOTAL ONLY 128 U/L (39-308); TOTAL PROTEIN, SERUM 7.8 g/dL (6.4-8.2)
[2024-12-14 03:32] LABS: SODIUM SERUM 139 mmol/L (136-145); TROPONIN I-HIGH SENSITIVITY 6 ng/L (<76)
[2024-12-14 03:39] LABS: CALCIUM, TOTAL 9.6 mg/dL (8.8-10.5); CREATININE 1.36 mg/dL (0.60-1.30); GLOMERULAR FILTR. RATE CALC > 60 mL/min (>60); GLUCOSE,RANDOM 129 mg/dL (70-110); UREA NITROGEN, BLOOD 11 mg/dL (7-18)
[2024-12-14] MEDS ORDERED: [UNRECOGNIZED DRUG - OTHER] PO SCH (09:00)
[2024-12-14 09:29] LABS: APPEARANCE,URINE CLEAR (CLEAR); GLUCOSE, URINE (UA) NEGATIVE (NEGATIVE); LEUKOCYTE ESTERASE ,URINE NEGATIVE (NEGATIVE); NITRATE,URINE NEGATIVE (NEGATIVE); OCCULT BLOOD,URINE NEGATIVE (NEGATIVE); SPECIFIC GRAVITIY, URINE 1.009 (1.003-1.030)
[2024-12-14 09:35] LABS: AMPHET/METH SCREEN,URINE NEGATIVE (NEGATIVE); BARBITURATE SCREEN, URINE NEGATIVE (NEGATIVE); CANNABINOID SCREEN,URINE NEGATIVE (NEGATIVE); COCAINE SCREEN,URINE NEGATIVE (NEGATIVE); METHADONE SCREEN, URINE POSITIVE (NEGATIVE)
[2024-12-14 09:42] LABS: ALCOHOL, URINE DRUG SCREEN NEGATIVE (NEGATIVE); PH,URINE DRUG SCREEN 7.5 (5.0-8.0)
[2024-12-14 09:45] LABS: SULFOSALICYLIC ACID,URINE 2+ (Negative)
[2024-12-14 10:25] VITALS: BP 170/95; PULSE 68; RESP 16; TEMP 98.1; O2SAT 100
[2024-12-14] MEDS: METHADONE HCL 10 MG TABLET PO SCH (10:41)
[2024-12-14] MEDS: ATORVASTATIN CALCIUM 10 MG TABLET PO SCH (10:41)
[2024-12-14] MEDS: DOLUTEGRAVIR SODIUM 50 MG TABLET PO SCH (11:39)
[2024-12-14] MEDS: VENLAFAXINE HCL 75 MG ER CAPSULE PO SCH (11:39)
[2024-12-14] MEDS: ABACAVIR SULFATE 300 MG TABLET PO SCH (11:40)
[2024-12-14 11:45] LABS: GLUCOMETER DEV NAME(LOC) 5S.2D; GLUCOSE,POINT OF CARE 143 MG/DL (70-110)
[2024-12-14 12:42] VITALS: BP 180/97; PULSE 63; RESP 18; TEMP 97.9; O2SAT 97
[2024-12-14 16:06] VITALS: BP 156/88; PULSE 71; RESP 18; TEMP 99.1; O2SAT 97
[2024-12-14 19:25] VITALS: BP 151/86; PULSE 65; RESP 18; TEMP 98.2; O2SAT 100
[2024-12-14 23:39] VITALS: BP 188/85; PULSE 70; RESP 17; TEMP 97.5; O2SAT 100
[2024-12-15] VITALS (10 sets, daily range): BP systolic 153–185; BP diastolic 71–95; PULSE 77–85; RESP 17–20; TEMP 97.7–98.2; O2SAT 96–100
[2024-12-15] MEDS ORDERED: ONDANSETRON HCL 4 MG/2 ML VIAL IVP PRN (01:30)
[2024-12-15 06:24] LABS: CREATININE 1.14 mg/dL (0.60-1.30); GLUCOSE,RANDOM 125 mg/dL (70-110); SODIUM SERUM 141 mmol/L (136-145); UREA NITROGEN, BLOOD 12 mg/dL (7-18)
[2024-12-15 06:25] LABS: CALCIUM, TOTAL 9.0 mg/dL (8.8-10.5); GLOMERULAR FILTR. RATE CALC > 60 mL/min (>60)
[2024-12-15 06:27] LABS: PLATELET COUNT (AUTO) 175 K/uL (150-450); RED BLOOD CELL COUNT(AUTO) 5.23 MIL/uL (4.50-5.90); RED CELL DISTRIBUTION WIDTH 15.2 % (11.5-14.5); WHITE BLOOD COUNT (AUTO) 6.2 K/uL (4.5-11.0)
[2024-12-15] MEDS: POTASSIUM CHLORIDE 20 MEQ ER TABLET PO ONE (10:50)
[2024-12-16] VITALS (13 sets, daily range): BP systolic 139–192; BP diastolic 77–100; PULSE 78–88; RESP 18–19; TEMP 97.5–98.8; O2SAT 94–100
[2024-12-16 06:57] LABS: PLATELET COUNT (AUTO) 198 K/uL (150-450); RED BLOOD CELL COUNT(AUTO) 5.28 MIL/uL (4.50-5.90); RED CELL DISTRIBUTION WIDTH 15.7 % (11.5-14.5); WHITE BLOOD COUNT (AUTO) 6.7 K/uL (4.5-11.0)
[2024-12-16 07:05] LABS: CALCIUM, TOTAL 9.2 mg/dL (8.8-10.5); CREATININE 1.06 mg/dL (0.60-1.30); GLOMERULAR FILTR. RATE CALC > 60 mL/min (>60); GLUCOSE,RANDOM 118 mg/dL (70-110); SODIUM SERUM 139 mmol/L (136-145); UREA NITROGEN, BLOOD 12 mg/dL (7-18)
[2024-12-16 07:20] LABS: RBC MORPHOLOGY COMMENT ABNORMAL RBC MORPH
[2024-12-16] MEDS ORDERED: AMLO-258 PO (07:47)
[2024-12-17 00:36] VITALS: BP 184/89
[2024-12-17 01:11] VITALS: BP 167/81; PULSE 89
[2024-12-17 04:31] VITALS: BP 160/90; PULSE 81; RESP 16; TEMP 97.9; O2SAT 95
[2024-12-17 07:25] VITALS: BP 165/95; PULSE 80; RESP 18; TEMP 97.9; O2SAT 96
[2024-12-17] MEDS ORDERED: HYDR50TA37 PO (08:38)
[2024-12-17 11:02] VITALS: BP 165/91; PULSE 87; RESP 18; TEMP 97.8; O2SAT 94
== END 2024-12-17 15:00 | disposition home or self-care (01) | DRG 305 ==
LOC: EMS 01:03 → EDH 05:51 → UNDOADMIN 05:51 → 5S 10:25
PROVIDERS: ADMIT Internal Medicine; ATTEND Internal Medicine
DX: I16.0 Hypertensive urgency (principal); F11.20 Opioid dependence, uncomplicated; E78.5 Hyperlipidemia, unspecified; E11.9 Type 2 diabetes mellitus without complications; G89.29 Other chronic pain; G43.909 Migraine, unspecified, not intractable, without status migrainosus; F99 Mental disorder, not otherwise specified; I10 Essential (primary) hypertension; Z79.84 Long term (current) use of oral hypoglycemic drugs; Z85.118 Personal history of other malignant neoplasm of bronchus and lung; Z88.5 Allergy status to narcotic agent; Z79.899 Other long term (current) drug therapy
CPT/HCPCS: 71045; 80048; 80076; 80307; 81001; 81002; 82550; 82962; 83735; 83880; 84484; 85025; 85610; 85730; 93005; 97116; 97162; 97530; 99291; G0480; J0360; 36415-L1; 36415-TC